=== PATIENT | male | born 1980 | race African-American/Black ===

== ENCOUNTER 2017-03-13 22:55 | Emergency (ER) | payer BC ==
[2017-03-14 01:04] VITALS: BP 146/95
== END 2017-03-14 01:04 | disposition home or self-care (01) ==
LOC: ED 22:55
DX: T20.12XA Burn of first degree of lip(s), initial encounter (principal); S00.521A Blister (nonthermal) of lip, initial encounter; X19.XXXA Contact with other heat and hot substances, initial encounter; Y93.G3 Activity, cooking and baking; Y92.89 Other specified places as the place of occurrence of the external cause; Y99.8 Other external cause status